=== PATIENT | female | born 1955 | race Two or more races ===

== ENCOUNTER → 2024-07-09 | Outpatient (CLI) | payer MEDICARE, SELFPAY ==
[2024-07-09 16:22] LABS: Collection Type, Urine Clean Catch; RBC,Urine 0 /hpf (0-3)
[2024-07-09 17:58] LABS: Bilirubin,Urine Negative (Negative); Blood,Urine Negative (Negative); Clarity,Urine Clear (Clear/Hazy); Color,Urine Yellow (Lt Yel-Yel); Glucose, Urine Negative (Negative); Ketones,Urine Negative (Negative); Leukocyte Esterase,Urine Trace (Negative); Nitrite,Urine Negative (Negative); PH,Urine 6.5 (5.0-7.0); Protein,Urine Negative (Neg - Trace); Specific Gravity,Urine 1.011 (1.001-1.035); Squamous Epithelial Cell,Urine 1 /hpf (0-5); Urobilinogen,Urine Negative mg/dL (0.0-1.0); WBC,Urine 1 /hpf (0-5)
== END | disposition home or self-care (01) ==
LOC: SLDO 15:47
PROVIDERS: PCP Specialist; Referring Provider Specialist; Visit Provider Specialist
DX: R10.84 Generalized abdominal pain (principal)
CPT/HCPCS: 81001; 87086

== ENCOUNTER → 2024-10-04 | Outpatient (CLI) | payer MEDICARE, SELFPAY ==
--- NOTE | 2024-10-04 16:38 | XR_ITS ---
Examination: CT abdomen and pelvis without contrast. Coronal 3-D reconstructions. Sagittal 2-D reconstructions. Date and time of exam:October 04, 2024 1726 hrs. Indications: Onset left upper abdominal pain beginning 4 days ago Comparison: February 13, 2024 CTDI: vol (mGy): 7.23 DLP: (mGycm): 357 Technique: Axial images of the abdomen have been obtained, 3 mm slice thickness Intravenous contrast material has not been administered. Low dose protocols were performed. One or more of the following dose reduction techniques were used; automated exposure control, adjustment of the mA and/or KV according to patient size, use of iterative reconstruction technique. Findings: Stable small pulmonary nodules in the left lower lung zone No focal liver or splenic lesion Absent gallbladder No pancreatic or adrenal mass Heavy abdominal aortic calcification 6 mm calculus lower pole right kidney No hydronephrosis or ureteral calculi Abdominal aortic calcification Normal appendix Colonic diverticulosis, no diverticulitis Contracted urinary bladder Absent uterus Impression: No pancreatic edema or mass effect 6 mm calculus lower pole right kidney no hydronephrosis Normal appendix Prominent colonic diverticulosis but no definite diverticulitis
== END | disposition home or self-care (01) ==
LOC: CCTX 16:33
PROVIDERS: PCP Specialist; Referring Provider Specialist; Visit Provider Specialist
DX: N20.0 Calculus of kidney (principal); K57.30 Diverticulosis of large intestine without perforation or abscess without bleeding; C54.1 Malignant neoplasm of endometrium
CPT/HCPCS: 74176

== ENCOUNTER → 2025-04-17 | Outpatient (CLI) | payer MEDICARE, SELFPAY ==
--- NOTE | 2025-04-17 | XR_ITS ---
Examination: CT abdomen and pelvis without contrast. Coronal 3-D reconstructions. Sagittal 2-D reconstructions. Date and time of exam:April 17, 2025 1140 hours, comparison October 04, 2024 INDICATIONS: Left lower abdominal pain beginning 3 days ago, history kidney stones CTDI: vol (mGy): 7.49 DLP: (mGycm): 369 Technique: Axial images of the abdomen have been obtained, 3 mm slice thickness Intravenous contrast material has not been administered. Low dose protocols were performed. One or more of the following dose reduction techniques were used; automated exposure control, adjustment of the mA and/or KV according to patient size, use of iterative reconstruction technique. Findings: No focal liver or splenic lesions Absent gallbladder No pancreatic or adrenal mass. 8mm upper pole right renal calculus No hydronephrosis or ureteral calculi Heavy abdominal aortic calcification. Normal appendix. Colonic diverticulosis, no diverticulitis Absent uterus Suspicious for 2 mm calculus in the urinary bladder IMPRESSION: 8mm upper pole right renal calculus Recommend bladder sonography follow-up to confirm 2 mm calculus in the urinary bladder
[2025-04-17 12:21] LABS: Collection Type, Urine Clean Catch
[2025-04-17 13:32] LABS: Bacteria,Urine Rare; Bilirubin,Urine Negative (Negative); Blood,Urine Negative (Negative); Clarity,Urine Clear (Clear/Hazy); Color,Urine Yellow (Lt Yel-Yel); Glucose, Urine Negative (Negative); Ketones,Urine Negative (Negative); Leukocyte Esterase,Urine Positive (Negative); Nitrite,Urine Negative (Negative); PH,Urine 6.0 (5.0-7.0); Protein,Urine Negative (Neg - Trace); RBC,Urine 5 /hpf (0-3); Renal Epithelial Cells,Urine 1 /hpf (0-5); Specific Gravity,Urine 1.026 (1.001-1.035); Squamous Epithelial Cell,Urine 1 /hpf (0-5); Urobilinogen,Urine Negative mg/dL (0.0-1.0); WBC,Urine 10 /hpf (0-5)
== END | disposition home or self-care (01) ==
LOC: CDIM 12:09 → COPL 12:23
PROVIDERS: PCP Specialist; Referring Provider Specialist; Visit Provider Radiology Diagnostic Radiology
DX: N20.0 Calculus of kidney (principal); R10.2 Pelvic and perineal pain
CPT/HCPCS: 74176; 81001; 87086

== ENCOUNTER → 2025-04-19 | Outpatient (CLI) | payer MEDICARE, SELFPAY ==
--- NOTE | 2025-04-19 13:18 | XR_ITS ---
Examination: Retroperitoneal ultrasound, complete Technique: Multiple high resolution grayscale images of the retroperitoneum obtained, including kidneys and bladder. Exam date and time:April 19, 2025, 1339 hours INDICATIONS: History 8mm calculus upper pole right kidney on CT stone study 04/17/2025, flank pain this week FINDINGS: Right kidney 8.5 cm cortex 1.0 cm 11 mm upper pole calculus Left kidney 9.0 cm cortex 1.3 cm No hydronephrosis Moderate renal scar formation Contracted urinary bladder IMPRESSION: Small kidneys with bilateral renal cortical thinning 11 mm upper pole right renal calculus No hydronephrosis
== END | disposition home or self-care (01) ==
LOC: CDIM 13:06
PROVIDERS: PCP Specialist; Referring Provider Specialist; Visit Provider Specialist
DX: N28.89 Other specified disorders of kidney and ureter (principal); N20.0 Calculus of kidney; C54.1 Malignant neoplasm of endometrium
CPT/HCPCS: 76770

== ENCOUNTER → 2025-04-29 | Outpatient (CLI) | payer MEDICARE, SELFPAY ==
--- NOTE | 2025-04-29 14:29 | XR_ITS ---
Examination: Bilateral hips, AP pelvis, 5 views Technique: AP, lateral views both hips, AP pelvis, 5 views Exam date and time: April 29, 2025 1514 hours INDICATIONS: Hip pain one week. FINDINGS: Moderate osteopenia. Mild to moderate bilateral hip osteoarthritis. No hip or pelvic fracture IMPRESSION: Bilateral mild to moderate osteoarthritis hips
[2025-04-29 15:53] LABS: Collection Type, Urine Clean Catch
[2025-04-29 16:23] LABS: Bacteria,Urine Rare; Bilirubin,Urine Negative (Negative); Blood,Urine Negative (Negative); Clarity,Urine Clear (Clear/Hazy); Color,Urine Yellow (Lt Yel-Yel); Culture Indicated,Urine Not Indicated; Glucose, Urine Negative (Negative); Hyaline Casts,Urine 1 /hpf (0-1); Ketones,Urine Negative (Negative); Leukocyte Esterase,Urine Negative (Negative); Nitrite,Urine Negative (Negative); PH,Urine 6.0 (5.0-7.0); Protein,Urine Trace (Neg - Trace); RBC,Urine 3 /hpf (0-3); Specific Gravity,Urine 1.026 (1.001-1.035); Squamous Epithelial Cell,Urine < 1 /hpf (0-5); Urobilinogen,Urine Negative mg/dL (0.0-1.0); WBC,Urine 2 /hpf (0-5)
[2025-04-29 16:25] LABS: D-Dimer 380 ng/mL (<600)
== END | disposition home or self-care (01) ==
LOC: CDIM 14:22 → COPL 15:01
PROVIDERS: PCP Specialist; Referring Provider Specialist; Visit Provider Specialist
DX: M16.0 Bilateral primary osteoarthritis of hip (principal); R10.84 Generalized abdominal pain; M79.604 Pain in right leg
CPT/HCPCS: 36415; 73523; 81001; 85379

== ENCOUNTER → 2025-07-22 | Outpatient (CLI) | payer MEDICARE, SELFPAY ==
--- NOTE | 2025-07-22 | XR_ITS ---
Examination: Abdomen AP single view Technique: AP portable supine abdomen, single view Exam date and time: July 22, 2025, 1135 hours INDICATIONS: Abdominal pain beginning 4 days ago. FINDINGS: Moderate stool throughout the colon Minimal small bowel ileus No obstruction No free air IMPRESSION: Minimal small bowel ileus
== END | disposition home or self-care (01) ==
LOC: CDIM 11:03
PROVIDERS: PCP Specialist; Referring Provider Specialist; Visit Provider Specialist
DX: K56.7 Ileus, unspecified (principal)
CPT/HCPCS: 74018

== ENCOUNTER → 2025-07-23 | Outpatient (CLI) | payer MEDICARE, SELFPAY ==
--- NOTE | 2025-07-23 09:12 | XR_ITS ---
Examination: CT abdomen and pelvis without contrast. Coronal 3-D reconstructions. Sagittal 2-D reconstructions. Date and time of exam: July 23, 2025, 0918 hours, comparison 04/17/2025 INDICATIONS: Generalized abdominal pain and diarrhea beginning 3 days ago CTDI: vol (mGy): 8.21 DLP: (mGycm): 442 Technique: Axial images of the abdomen have been obtained, 3 mm slice thickness Intravenous contrast material has not been administered. Low dose protocols were performed. One or more of the following dose reduction techniques were used; automated exposure control, adjustment of the mA and/or KV according to patient size, use of iterative reconstruction technique. Findings: No focal liver or splenic lesions Gallbladder is not visualized No common hepatic or common bile duct stones No pancreatic or adrenal mass 10 mm upper pole right renal calculus, no hydronephrosis or ureteral calculi Abdominal aortic calcification no aneurysmal dilatation Normal appendix Colonic diverticulosis, no diverticulitis Absent uterus No pelvic mass Severe osteopenia Contracted urinary bladder IMPRESSION: 10 mm upper pole nonobstructing right renal calculus, no hydronephrosis or ureteral calculi Normal appendix No bowel obstruction Colonic diverticulosis, no diverticulitis
== END | disposition home or self-care (01) ==
PROVIDERS: PCP Specialist; Referring Provider Specialist; Visit Provider Specialist
DX: N20.0 Calculus of kidney (principal); K57.30 Diverticulosis of large intestine without perforation or abscess without bleeding
CPT/HCPCS: 74176

== ENCOUNTER → 2025-07-25 | Outpatient (CLI) | payer MEDICARE, SELFPAY ==
--- NOTE | 2025-07-25 11:45 | XR_ITS ---
Examination: Screening digital mammography, bilateral Computer aided detection 3-D breast Tomosynthesis, bilateral Date and time of exam: July 25, 2025, 1143 hours, compared to mammograms dating to October 15, 2016 Indication: Screening Technique: Nonmagnified MLO, CC views of the breasts to been obtained, reconstructed from 3-D Tomosynthesis images. R2 computer aided detection program utilized for evaluation of suspicious masses and/or abnormal calcifications. 3-D Tomosynthesis images obtained. Findings: Scattered areas of fibroglandular density. Benign calcifications. No interval suspicious masses Impression: BI-RADS category II: Benign Findings. Recommend 1 year follow-up mammogram.
== END | disposition home or self-care (01) ==
LOC: CDIM 11:35
PROVIDERS: Referring Provider Specialist; Visit Provider Specialist
DX: Z12.31 Encounter for screening mammogram for malignant neoplasm of breast (principal); R92.323 Mammographic fibroglandular density, bilateral breasts; R92.1 Mammographic calcification found on diagnostic imaging of breast
CPT/HCPCS: 77063; 77067